=== PATIENT | female | born 1960 | race Caucasian/White ===

== ENCOUNTER → 2025-01-23 09:50 | Outpatient (BNVA) | payer MEDICARE, OTHER, SELFPAY | PROVIDERS: Family Provider Family Medicine; Referring Provider Family Medicine; Visit Provider Psychiatry & Neurology Neurology | DX: G45.9 Transient cerebral ischemic attack, unspecified (principal); R07.9 Chest pain, unspecified; Z86.73 Personal history of transient ischemic attack (TIA), and cerebral infarction without residual deficits; R40.0 Somnolence; R55 Syncope and collapse | CPT/HCPCS: 36415; 81241; 82607; 82746; 83921; 84439; 84443; 85049; 85384; 85610; 85730; 86146; 99203 ==

== ENCOUNTER → 2025-02-17 07:04 | Outpatient (BNVA) | payer MEDICARE, OTHER, SELFPAY | PROVIDERS: Family Provider Family Medicine; PCP Family Medicine; Referring Provider Psychiatry & Neurology Neurology; Visit Provider Specialist | DX: R55 Syncope and collapse (principal); G45.9 Transient cerebral ischemic attack, unspecified | CPT/HCPCS: 95819 ==

== ENCOUNTER → 2025-02-22 10:42 | Outpatient (BNVA) | payer MEDICARE, OTHER, SELFPAY | PROVIDERS: Family Provider Family Medicine; PCP Family Medicine; Referring Provider Psychiatry & Neurology Neurology; Visit Provider Internal Medicine Cardiovascular Disease | DX: R55 Syncope and collapse (principal); I10 Essential (primary) hypertension; E78.5 Hyperlipidemia, unspecified; R07.9 Chest pain, unspecified; I65.29 Occlusion and stenosis of unspecified carotid artery; Z78.9 Other specified health status; Z79.02 Long term (current) use of antithrombotics/antiplatelets; Z79.82 Long term (current) use of aspirin; Z87.891 Personal history of nicotine dependence | CPT/HCPCS: 93005; 99204 ==

== ENCOUNTER 2025-02-28 07:40 | Outpatient (CLI) | payer MEDICARE, OTHER, SELFPAY ==
--- NOTE | 2025-02-28 | ECG_ITS ---
[facility] Test Date: 2025-02-28 Pat Name: Ruth Ch Department: Room: Gender: Female Province Archivist: : 1960 Requested By: Fermin Ariza Order Number: [id number] Tata CARBONE: Interpretive Statements Lung unchanged pre/post procedure; Intraprocedure shortess of breath; Symptoms resoled by discharge [email or web address]
[2025-02-28 08:01] VITALS: BMI 43.6
--- NOTE | 2025-02-28 08:11 | NMCV_ITS ---
NM gm perf SPECT r/s* [id number] Ruth Ch Age: 64 Gender: F : 1960 Exam Date: 02/28/2025 08:50 Ordering Phys: Fermin Ariza MD ([email or web address]) Technologist: SALOMÓN Lozano Exam Location: [facility] Indications: cp STRESS TEST Please see separate stress test report in [facility] for full findings IMAGE PROTOCOL Rest/Stress 1 Exercise Day Radiopharmaceutical Dose (mCi) Administration Site Administered by Rest: Tc-99m 10.4 IV Nikia Singh, MEDICAL CLERK Sestamibi Stress:Tc-99m 33 IV Nikia Trujillogle, MEDICAL CLERK Sestamibi Rest: 28-Feb-2025 60 Discovery 630 Stress: 28-Feb-2025 15 Discovery 630 Radiopharmaceutical was injected at 93 % maximum heart rate. Images obtained in supine and prone position. 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 Small bruce of fixed perfusion defect noted in the distal segment of inferior wall surrounded by moderate areas of reversibility suggestive of ischemia in possible dominant RCA territory. FUNCTIONAL RESULTS (calculated via Gated SPECT) Stress Image LV EF (%): 59 Stress EDV (mL):111 TID: 1.02 Stress ESV (mL):46 FUNCTIONAL FINDINGS: There is normal left ventricular systolic function. 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 Small bruce of fixed perfusion defect noted in the distal segment of inferior wall surrounded by moderate areas of reversibility suggestive of ischemia in possible dominant RCA territory. Juan Carlos White MD (Electronically Signed) Final Date: 01 March 2025 13:23 S
[2025-02-28 09:39] VITALS: BP 161/104; PULSE 85
== END 2025-02-28 07:41 | disposition home or self-care (01) ==
LOC: CDL 07:42
PROVIDERS: PCP Family Medicine; Visit Provider Internal Medicine Cardiovascular Disease
DX: R07.9 Chest pain, unspecified (principal)
CPT/HCPCS: 36415; 78452; 93017; A9500

== ENCOUNTER 2025-03-02 13:56 | Outpatient (CLI) | payer MEDICARE, OTHER, SELFPAY ==
[2025-03-02 15:49] LABS: Hematocrit 40.6 % (36-47); Hemoglobin 13.50 g/dL (11.27-16.99); Mean Corpuscular HGB Conc 33.3 g/dL (30-55); Mean Corpuscular Hemoglobin 28.8 pg (27-33); Mean Corpuscular Volume 86.8 fl (85-98); Nucleated Red Blood Cells % 0 %; Platelet Count 196 10^3/cmm (157-399); Red Blood Count 4.68 10^6/uL (3.85-5.65); White Blood Count 6.87 10^3/uL (3.29-11.43)
[2025-03-02 16:06] LABS: INR 1.00 (0.8-1.2); Prothrombin Time 13.90 SECONDS (12.1-14.9)
[2025-03-02 16:44] LABS: Anion Gap 17.5 (5-19); Blood Urea Nitrogen 10 mg/dL (8-23); Calcium 9.2 mg/dL (8.5-10.5); Carbon Dioxide 22 mmol/L (22-29); Chloride 105 mmol/L (98-107); Glucose 106 mg/dL (65-115); Osmolality Calculated 291 mOsm/kg (285-295); Potassium 3.5 mmol/L (3.5-5.1); Sodium 141 mmol/L (136-145)
== END 2025-03-02 13:57 | disposition home or self-care (01) ==
LOC: LAB 14:00
PROVIDERS: Psychiatry & Neurology Neurology; PCP Family Medicine; Visit Provider Internal Medicine Cardiovascular Disease
DX: G45.9 Transient cerebral ischemic attack, unspecified (principal); R94.39 Abnormal result of other cardiovascular function study
CPT/HCPCS: 36415; 80048; 85025; 85610

== ENCOUNTER 2025-03-13 06:59 | Outpatient (CLI) | payer MEDICARE, OTHER, SELFPAY ==
[2025-03-13] VITALS (14 sets, daily range): BP systolic 98–180; BP diastolic 49–67; PULSE 45–54; RESP 15–28; TEMP 36.8; O2SAT 92–99; BMI 43.6
--- NOTE | 2025-03-13 07:30 | XACV_ITS ---
Exam Room: 2 Ht: 165 cm Wt: 119 kg BSA: 2.40 m2 Gender: Female : 1960 Any Known Allergies: Other Exam Priority: Routine Procedure(s): Procedure Description: Diagnostic procedure Procedure Description: Left Heart Catheterization Procedure Description: Left ventriculography Procedure Description: Coronary Angiography KARTHIKChristopher VELEZ; Diagnostic Cath Status: Elective Diagnostic Findings * No disease noted in the Left Main, Left Anterior Descending, Right, or Circumflex coronary arteries. * Coronary angiography shows right dominance. Conclusions 1. Indication: Abnormal stress test/chest pain. 2. No disease noted in the Left Main, Left Anterior Descending, Right, or Circumflex coronary arteries. 3. All garcía are normal. 4. Normal left ventricular systolic function. Ejection fraction of 55%. Recommendations * Continue current medical management and risk factor modification. Diagnostic RX Recommendation: medical therapy and/or counseling LV EDP: 21 mmHg Ventriculography Ejection Fraction: 55.0 % Pressures Phase:Rest AO : 107 / 75 ( 91 ) @ 10:19:00 AM 128 / 69 ( 95 ) @ 10:26:00 AM 132 / 71 ( 97 ) @ 10:26:00 AM LV : 128 / 2 / 21 @ 10:25:00 AM 127 / 0 / 20 @ 10:26:00 AM 130 / 0 / 20 @ 10:26:00 AM Valves Phase:DefaultPhase AV : 2.0 @ 9:30:15 AM AV Mean Gradient: 0.0 @ 9:30:15 AM Clinical Evaluation EBL: 5mL-10mL Procedural Details Procedure Consent Obtained. Pre-Procedure Time Out. Identified patient by full name and date of as verbalized by the patient/guarantor. Does the consent match the physician's order: Yes. Accurate & Complete Informed Consent: Yes. Inpatient/Outpatient History & Physical on Chart: Yes. If H&P is completed, is and addenduem needed: Yes; If yes, is the addendum complete: N/A. Visualize and Verify Site with Patient/Guarantor: N/A. Relevant Radiology Images available: Yes. The risks, benefits, and alternatives of sedation and/or procedure were discussed by physician. The patient agrees to continue. Procedure started. [facility] Clinical Fraility Score: 3: Managing Well. Brine Maker Indications: New Onset Angina/Abnormal stress test. Chest Pain Symptom Assessment: Typical Angina Symptoms. Cardiovascular Instability: No. Correct patient, site and procedure confirmed by cath team. PERRLA. Strong, equal hand stator winder bilaterally. Lungs clear x 5 lobes. IV Site on Arrival: 20 gauge in the right anticubital. IV Fluids: 0.9% NaCl at KVO. 0 mL infused prior to clinical genetics laboratory chief. Pre Procedural Pulses: bilateral dorsalis pedis was 1+. Pre Procedural Pulses: bilateral posterior tibial was Doppled. Pre Procedural Pulses: bilateral radial was 1+. Oxygen started at 2liters/min via nasal canula. right groin was prepped with chloroprep then draped in the usual sterile fashion. right radial was prepped with chloroprep then draped in the usual sterile fashion. Physician notified. Patient's family in CPRU room #4. Dr. White will update at the completion of the procedure. Equipment: 6F - Radial. Cardiac Cath Pack. ACIST Manifold Kit Model BT 2000. Heparinized Saline (2 units/mL), 1000 mL bag. Physician arrived. Physician scrubbed in. Immediate Pre-Procedure Time Out. Correct Patient: Yes; Correct Procedure: Yes; Correct Site: Yes; Correct Patient Position: Yes; Correct Supplies: Yes; Dried Flammable Prep: Yes; Blood Products Available: N/A;. Lidocaine 1% infiltrated to the right radial. Arterial access obtained. A 5 somali Casey catheter in over the exchange J wire. Multiple views taken of left coronary artery. Catheter redirected to the RCA. Multiple views taken of right coronary artery. Catheter removed over the exchange J wire. A 5 somali Angled Pig catheter in over the exchange J wire. EDP Sample taken: LV 128/2,21; HR: 59 BPM; SpO2: 96%. LV gram performed in WHITESIDE @ 10 mL/second for a total of 30 mL. EDP Sample taken: LV 127/-1,20; HR: 60 BPM; SpO2: 97%. Pullback taken: LV 130/-1,20; AO 128/69(95); Mean: 0mmHg, Peak to Peak: 2mmHg, SEP: 20sec/min; HR: 61 BPM; SpO2: 97%. Catheter removed over the exchange J wire. Physician scrubbed out. A TR Band was successful obtaining hemostatsis at the Right Radial artery insertion site. Post Procedure: Pulses reassessed and unchanged. PERRLA. Strong, equal hand stator winder bilaterally. No VTE prophylaxis required. Medication's Wasted: Lidocaine 1% = 18 mL. Medication's Wasted: Nitro = 49.8 mg. Medication's Wasted: Heparin = 1000 untis. Medication's Wasted: Other = Fentanyl 25 mcg. Total IV fluids: 35 mL. Post-op diagnosis: Normal coronaries. Complications: none. Estimated blood loss: 5mL-10mL. Responsiveness - Normal response to verbal stimuli; alert and oriented, PERRLA. Airway - Unaffected, no intervention required; spontaneous ventilation. Circulation: W/N/L, pulses unchanged. Nausea/Vomiting: No. Procedure completed. Patient transferred by bed to CPRU. Vital chart was stopped. Access Site Site: Right Radial artery Sheath Size: 6 Fr Hemostasis Method: TR Band Hemostasis Success: Successful Procedure Medications Start: 9:10 AM Stop: 9:10 AM Medication: Versed Amount: 1 mg Route: I.V. Start: 9:10 AM Stop: 9:10 AM Medication: Fentanyl Amount: 25 mcg Route: I.V. Start: 9:12 AM Stop: 9:12 AM Medication: Versed Amount: 1 mg Route: I.V. Start: 9:12 AM Stop: 9:12 AM Medication: Fentanyl Amount: 25 mcg Route: I.V. Start: 9:16 AM Stop: 9:16 AM Medication: Nitrogylcerin Amount: 200 mcg Route: I.A. Start: 9:18 AM Stop: 9:18 AM Medication: Heparin Amount: 5000 units Route: I.V. Start: 9:19 AM Stop: 9:19 AM Medication: Fentanyl Amount: 25 mcg Route: I.V. I, the attending physician, have reviewed and verified all procedure medications. Yes, all medications given per verbal order History/Risk Factors Hypertension: Yes Dyslipidemia: Yes Peripheral Arterial Disease (PAD): No Myocardial Infarction (LA): No Obesity: Yes Renal Disease: No Tobacco Use: Former Prior Interventions PCI: No CABG: No Valve Surgery: No Report Signatures Finalized by Juan Carlos White MD on 04/02/2025 10:16 PM
--- NOTE | 2025-03-13 09:01 | W.PM.OPSUD ---
Surgery/Procedure H&P Update DATE OF PROCEDURE: March 13, 2025 DATE H&P PERFORMED: 02/22/25 H&P UPDATE INFORMATION: I have reviewed H&P completed within last 30 days, I have examined patient prior to procedure, No changes to prior documentation, H&P to be scanned into chart, H&P is in [facility] EMR on date indicated and Risks and benefits of the procedure reviewed PREOP DIAGNOSIS: Chest pain/abnormal stress test PRIMARY INDICATION FOR PROCEDURE: Chest pain/abnormal stress test PLANNED PROCEDURE: Operation Date: 03/13/25 08:30 Proposed Procedures p Cardiac Catheterization - [facility] w/wo LV & Coros(Left) - Juan Carlos White MD PATIENT REASSESSED PRIOR TO SEDATION, WITH NO CHANGE NOTED: Yes PHYSICAL EXAM: alert, oriented x 3, clear to auscultation bilaterally, regular rate & rhythm and operative site marked OTHER PERTINENT EXAM FINDINGS: Patient has been explained all risk-benefit and alternative for the procedure. Patient understand 2% risk of stroke major bleed. Patient restand 5% risk of minor bleeding oozing infection hematoma pseudoaneurysm contrast-induced nephropathy urgent emergent vascular or CT surgery. Patient agrees to it and would like to proceed with it. AIRWAY EVAL/ANESTHESIA PLAN: ASA II, Risks, benefits & alternatives of sedation and/or procedure discussed and Patient agrees to continue as planned
--- NOTE | 2025-03-13 09:30 | SUR.PHASEII ---
POST CATH NOTE Received patient from refuse laborer. Status post cardiac catheterization via the right radial approach. TR band in place. Site is hemostatic. Verbal post cath instructions went over with the patient/family. They understood well. Call light within reach. Informed to call for needs.
--- NOTE | 2025-03-13 10:30 | SUR.PHASEII ---
POST CATH FLUIDS IV set at 100 ml/hr post cath of normal saliner 0.9% per MD order.
== END 2025-03-13 12:45 | disposition home or self-care (01) ==
PROVIDERS: PCP Family Medicine; Visit Provider Internal Medicine Cardiovascular Disease
DX: R07.9 Chest pain, unspecified (principal); R94.39 Abnormal result of other cardiovascular function study; I10 Essential (primary) hypertension; E78.5 Hyperlipidemia, unspecified; E66.9 Obesity, unspecified; Z68.41 Body mass index [BMI] 40.0-44.9, adult; Z87.891 Personal history of nicotine dependence; Z79.82 Long term (current) use of aspirin; K21.9 Gastro-esophageal reflux disease without esophagitis
CPT/HCPCS: 36415; 93458; 99152; 99153; C1769; C1887; C1894; J1644; J2250; J3010; J3490; J7030; J9999; Q0163; Q9967

== ENCOUNTER 2025-03-30 06:31 | Day surgery (SDC) | payer MEDICARE, OTHER, SELFPAY ==
--- NOTE | 2025-03-30 06:44 | USCV_ITS ---
Ruth Ch Age: 64 Gender: F : 1960 Exam Date: 03/30/2025 08:06 Ordering Phys: Fermin Ariza MD ([email or web address]) Technologist: CARLITO [place]am [place] [facility] [place]ication: TIA BP: / HR: Rhythm: Sinus Technical Quality: Adequate MEASUREMENTS (Male / Female) Normal Values Medications Patient given IV sedation by anesthesia service, for details please refer to the anesthesia report. Complications None. Proc. Components The patient tolerated the procedure well. FINDINGS Left Ventricle Normal left ventricular size, systolic function and wall thickness with no regional wall motion abnormality. Left ventricular ejection fraction is55-60%. Right Ventricle Normal right ventricular size and systolic function. Right Atrium Normal right atrial size. Left Atrium Normal left atrial size. IA Septum Very mobile interatrial septum with respiration. No shunt by color doppler. Agitated saline study was positive for a small right to left shunt consistent with a small patent foramen ovale. LA Appendage Normal left atrial appendage size. Normal emptying velocity. No thrombus. Mitral Valve Normal mitral valve structure. No mitral valve stenosis or regurgitation. Aortic Valve Normal aortic valve structure. No aortic valve stenosis or regurgitation. Tricuspid Valve Normal tricuspid valve structure. No tricuspid valve stenosis or regurgitation. Normal pulmonary pressure. Pulmonic Valve Normal pulmonic valve structure. No pulmonic valve stenosis or regurgitation. Pericardium No pericardial effusion. Aorta Normal diameter of the aortic root and ascending thoracic aorta. CONCLUSIONS Normal left ventricular cavity size and systolic function, EF 55-60 %. Normal right ventricular cavity size and systolic function. Normal left atrial appendage appearance without thrombus. Small patent foramen ovale. Normal valvular function. Fermin Ariza MD, FACC (Electronically Signed) Final Date: 30 March 2025 13:26 S
[2025-03-30 06:50] VITALS: BP 141/90; PULSE 78; RESP 18; TEMP 36.3; O2SAT 95; BMI 42.3
[2025-03-30 07:09] LABS: Hematocrit 43.4 % (36-47); Hemoglobin 14.40 g/dL (11.27-16.99); Mean Corpuscular HGB Conc 33.2 g/dL (30-55); Mean Corpuscular Hemoglobin 28.7 pg (27-33); Mean Corpuscular Volume 86.6 fl (85-98); Nucleated Red Blood Cells % 0 %; Platelet Count 208 10^3/cmm (157-399); Red Blood Count 5.01 10^6/uL (3.85-5.65); White Blood Count 7.72 10^3/uL (3.29-11.43)
--- NOTE | 2025-03-30 07:20 | ANES.PREANE2 ---
Pre-Anesthetic Assessment Height/Weight: Height 1.68 m Weight 118.841 kg Temp Pulse Resp BP Pulse Ox O2 Del Method 97.3 F L 78 18 141/90 95 Room Air 03/30/25 06:50 03/30/25 06:50 03/30/25 06:50 03/30/25 06:50 03/30/25 06:50 03/30/25 06:50 Operation Date: 03/30/25 08:00 Proposed Procedures p RUSTY - Echocardiogram Transesophageal; CV req echo RUSTY GI lab(Not Applicable) - Fermin Ariza MD Familial anesthetic complications: None Was Beta Caroline taken within 24 hours: N/A Was Clonidine taken within 24 hours: N/A Last intake: Intake Last Liquid Date 03/29/25 Last Liquid Time 22:00 Last Solid Date 03/29/25 Last Solid Time 20:30 Social Tobacco and No alcohol Exam alert, oriented x 3, clear to auscultation bilaterally and regular rate & rhythm Airway Mallampati: Class III Pulmonary Chronic Obstructive Pulmonary Disease CV/HEM Coronary Artery Disease and Hypertension Excercise stress test CONCLUSION: 1. Exercise capacity was below average for age. 2. Heart rate response was appropriate. 3. Blood pressure response was appropriate. 4. No symptoms of angina during exercise. 5. 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 Small bruce of fixed perfusion defect noted in the distal segment of inferior wall surrounded by moderate areas of reversibility suggestive of ischemia in possible dominant RCA territory. Neuropsych repeated TIAS and syncopal episodes Anesthetic Plan ASA status: 2 Anesthesia: MAC Risk of > 500 ml blood loss (7ml/kg in children): No Medications/Allergies Home Medications ?Medication ?Instructions ?Recorded ?Confirmed ?Last Taken ?Type aspirin 81 mg tablet 81 mg PO DAILY 01/23/25 03/30/25 03/29/25 History cetirizine 10 mg capsule (All Day 10 mg PO DAILY PRN Allergies 01/23/25 03/30/25 03/24/25 History Allergy (cetirizine)) folic acid 0.8 mg capsule 1.6 mg PO DAILY 01/23/25 03/30/25 03/29/25 History magnesium 250 mg tablet 500 mg PO DAILY PRN muscle cramps 01/23/25 03/30/25 Unknown History paroxetine HCl 20 mg tablet 20 mg PO DAILY 01/23/25 03/30/25 03/29/25 History pantoprazole 40 mg tablet,delayed 40 mg PO DAILY 4 weeks #30 tabs 03/13/25 03/30/25 03/29/25 Rx release Allergies Allergy/AdvReac Type Severity Reaction Status Date / Time lovastatin (From Mevacor) Allergy ADR-Vomitin Verified 03/30/25 06:48 g miconazole Allergy nausea and Verified 03/27/25 11:19 vomiting monosodium glutamate Allergy ADR-Vomitin Verified 03/30/25 06:48 g pravastatin Allergy ADR-Vomitin Verified 03/30/25 06:48 g PFSH Anesthesia Social History Smoking and tobacco/nicotine status: former use of tobacco/nicotine Data Anesthesia 03/30/25 07:00 03/30/25 07:00 Short CBC 03/30/25 Range/Units 07:00 WBC 7.72 (3.29-11.43) 10^3/uL Hgb 14.40 (11.27-16.99) g/dL Hct 43.4 (36-47) % MCV 86.6 (85-98) fl Plt Count 208 (157-399) 10^3/cmm Neut % (Auto) 51.8 % Neut # (Auto) 4.00 (1.8-7.7) 10^3/uL Cardiac Studies: Sestamibi Stress Test (Cardiology) 02/28/25
[2025-03-30 07:35] LABS: Anion Gap 17.9 (5-19); Blood Urea Nitrogen 10 mg/dL (8-23); Calcium 9.7 mg/dL (8.5-10.5); Carbon Dioxide 24 mmol/L (22-29); Chloride 101 mmol/L (98-107); Creatinine Clr Calc Pharmacy 127.5606; Glucose 120 mg/dL (65-115); Osmolality Calculated 288 mOsm/kg (285-295); Potassium 3.9 mmol/L (3.5-5.1); Sodium 139 mmol/L (136-145)
--- NOTE | 2025-03-30 08:04 | W.PM.OPSUD ---
Surgery/Procedure H&P Update DATE OF PROCEDURE: March 30, 2025 DATE H&P PERFORMED: 02/22/25 PREOP DIAGNOSIS: transient ischemic attack PRIMARY INDICATION FOR PROCEDURE: Transient ischemic attack PLANNED PROCEDURE: Operation Date: 03/30/25 08:00 Proposed Procedures p RUSTY - Echocardiogram Transesophageal; CV req echo RUSTY GI lab(Not Applicable) - Fermin Ariza MD
--- NOTE | 2025-03-30 08:17 | W.PM.OPSUD ---
Surgery/Procedure H&P Update DATE OF PROCEDURE: March 30, 2025 DATE H&P PERFORMED: 02/22/25 CHANGES TO PREVIOUS DOCUMENTATION: The risks and benefits were discussed with the patient. Benefits include identifying a cardiac source of embolism that could be medically addressed to reduced the risk of future neurologic events and the risk included a 1:1000 chance of esophageal perforation. PREOP DIAGNOSIS: transient ischemic attack PLANNED PROCEDURE: Operation Date: 03/30/25 08:00 Proposed Procedures p RUSTY - Echocardiogram Transesophageal; CV req echo RUSTY GI lab(Not Applicable) - Fermin Ariza MD
[2025-03-30 08:34] VITALS: BP 123/95; PULSE 69; RESP 18; TEMP 36.6; O2SAT 98
--- NOTE | 2025-03-30 08:37 | PM.PROC ---
Procedure Note: Date of procedure: 03/30/25 Pre-procedure diagnosis: transient ischemic attack Post-procedure diagnosis: other Procedure: Patient was sedated via the anesthesia department after Cetacaine spray used to numb the posterior pharynx. The transesophageal echocardiogram probe was advanced intothe mid esophagus where multiple views were taken of the heart. Agitated saline study was performed which identified a small patent foramen ovale. A mobile interatrial septum was also identified. Op report anesthesia: MAC Estimated blood loss (mL): 0 Condition: stable Coding Level of Care Code Acute Code for Chg Fwd
[2025-03-30 08:47] VITALS: BP 160/102; PULSE 81; RESP 16; O2SAT 99
[2025-03-30 08:58] VITALS: BP 151/97; PULSE 76; RESP 16; O2SAT 94
--- NOTE | 2025-03-30 09:20 | ANE.PACU2 ---
Inpatient post-anesthesia follow up: Airway intact: Yes Vital signs: Temperature 97.9 F Pulse Rate 76 Respiratory Rate 16 Blood Pressure 151/97 Pulse Oximetry 94 Oxygen Delivery Me thod Room Air Oxygen Flow Rate 10 Fraction of Inspir ed Oxygen Hydration adequate: Yes Nausea and vomiting: No Pain level: 1 Mental status: Baseline
== END 2025-03-30 09:19 | disposition home or self-care (01) ==
PROVIDERS: PCP Family Medicine; Visit Provider Internal Medicine Cardiovascular Disease
PROC: (CPT 93312; principal; 2025-03-30 08:00)
DX: G45.9 Transient cerebral ischemic attack, unspecified (principal); J44.9 Chronic obstructive pulmonary disease, unspecified; I25.10 Atherosclerotic heart disease of native coronary artery without angina pectoris; I10 Essential (primary) hypertension; Z79.82 Long term (current) use of aspirin; K21.9 Gastro-esophageal reflux disease without esophagitis; Z87.891 Personal history of nicotine dependence; E78.5 Hyperlipidemia, unspecified
CPT/HCPCS: 36415; 80048; 85025; 93312; 93320; 93325; J2371; J2704; J3490; J7030; J9999

== ENCOUNTER → 2025-04-27 10:07 | Outpatient (BNVA) | payer MEDICARE, OTHER, SELFPAY | PROVIDERS: PCP Family Medicine; Visit Provider Internal Medicine Cardiovascular Disease | DX: R55 Syncope and collapse (principal); I10 Essential (primary) hypertension; E78.5 Hyperlipidemia, unspecified; R07.9 Chest pain, unspecified; Q21.12 Patent foramen ovale; I65.29 Occlusion and stenosis of unspecified carotid artery; Z78.9 Other specified health status; Z86.73 Personal history of transient ischemic attack (TIA), and cerebral infarction without residual deficits; Z79.82 Long term (current) use of aspirin; Z87.891 Personal history of nicotine dependence | CPT/HCPCS: 99214 ==